=== PATIENT | male | born 1985 | race Caucasian/White ===

== ENCOUNTER 2016-12-08 10:05 | Emergency (ER) | payer SELFPAY ==
[~2016-12-08] VITALS: Ht 170.2 cm; Wt 70.0 kg
[2016-12-08 10:07] VITALS: Ht 170.2 cm; Wt 70.0 kg
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
[2016-12-08] MEDS ORDERED: HYDROCODONE/APAP (5/325) TAB PO ONE (12:30)
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
[2016-12-08] MEDS ORDERED: NAPR-260 PO (15:02)
[2016-12-08] MEDS ORDERED: HYDR-906 PO (15:02)
[2016-12-08] MEDS ORDERED: NEOM1PAC TP (15:02)
[2016-12-08] MEDS ORDERED: CYCL-319 PO (15:02)
== END 2016-12-08 15:17 | disposition home or self-care (01) ==
LOC: FTE 10:05
DX: M25.512 Pain in left shoulder (principal); R51 Headache
CPT/HCPCS: 70450; 70486; 71010; 72125; 73590